=== PATIENT | female | born 1955 | race Caucasian/White ===

== ENCOUNTER 2017-11-01 08:21 | Outpatient (CLI) | payer BC | END 2017-11-01 08:22 | disposition home or self-care (01) | LOC: BICMAMMO 08:21 | PROVIDERS: ATTEND Internal Medicine | DX: Z12.31 Encounter for screening mammogram for malignant neoplasm of breast (principal); Z13.820 Encounter for screening for osteoporosis; Z85.3 Personal history of malignant neoplasm of breast; M85.88 Other specified disorders of bone density and structure, other site | CPT/HCPCS: 77063; 77067; 77080 ==

== ENCOUNTER 2018-09-15 14:31 | Outpatient (CLI) | payer BC ==
--- NOTE | 2018-09-15 18:27 | RAD ---
6 VIEWS CERVICAL SPINE: Date: 09/15/18 HISTORY: Cervical radiculopathy. COMPARISON: None. FINDINGS: AP, open-mouth, base of skull, bilateral oblique, and lateral views of cervical spine are submitted f or interpretation. Predental space is normal. Odontoid process is intact. Lateral masses of C1 and C2 articulate appropriately. In the AP projection, mild facet hypertrophy at multiple levels. No malalignment. Bilaterally, the neural foramina are patent. There is mild narrowing of the right neural foramina at C5-C6 and C6-C7. No evidence of high grade foraminal stenosis. On the lateral projection, moderate loss of disc space height at C5-C6 and C6-C7. Straightening of no rmal cervical lordosis. No fracture. IMPRESSION: Degenerative disc disease at C5-C6 and C6-C7. POS: [facility]
== END 2018-09-15 14:32 | disposition home or self-care (01) ==
LOC: BICRAD 14:31
PROVIDERS: ATTEND Chiropractor
DX: M50.122 Cervical disc disorder at C5-C6 level with radiculopathy (principal)
CPT/HCPCS: 72050

== ENCOUNTER 2018-11-04 08:47 | Outpatient (CLI) | payer BC ==
--- NOTE | 2018-11-04 11:06 | BD ---
DEXA BONE DENSITY STUDY: History: Post-menopausal. Lumbar Spine: BMD (g/cm2) L1 0.984 T-Score: -0.1 L2 1.083 T-Score: 0.4 L3 0.967 T-Score: -1.1 L4 0.882 T-Score: -1.6 L1-L4 0.979 T-Score: 0.6 Femoral Neck: 0.647 T-Score: -1.8 Total Femur: 0.795 T-Score: -1.2 Impression: 1. Osteopenia left femoral neck. Normal bone mineral density of the lumbar spine. 2. 10-year fracture risk of major osteoporotic fracture is 17% and hip fracture 1%. These fracture pr obabilities were calculated for an untreated patient. POS: [facility]
== END 2018-11-04 08:48 | disposition home or self-care (01) ==
LOC: BICMAMMO 08:47
PROVIDERS: ATTEND Internal Medicine
DX: Z08 Encounter for follow-up examination after completed treatment for malignant neoplasm (principal); M85.89 Other specified disorders of bone density and structure, multiple sites; Z85.3 Personal history of malignant neoplasm of breast; Z80.3 Family history of malignant neoplasm of breast
CPT/HCPCS: 77063; 77067; 77080

== ENCOUNTER 2018-12-12 09:00 | Outpatient (CLI) | payer BC ==
--- NOTE | 2018-12-12 11:03 | MRI ---
MRI CERVICAL SPINE: 12/12/2018 PROVIDED CLINICAL HISTORY: Cervical disk disorder with radiculopathy. FINDINGS: Cervical alignment appears normal, with the exception of trace anterolisthesis of C3 on C4. Vertebra l body heights are preserved. No focal concerning regional marrow signal abnormality is evident. Th e visualized posterior fossa, cervicomedullary junction, and cervical spinal cord demonstrate normal signal and morphology. At C2-C3, there is bilateral facet arthritis without significant central canal or foraminal narrowing apparent. At C3-C4, there is right-sided uncinate process hypertrophy and facet arthritis, producing moderate-s evere foraminal narrowing on the right. There is mild left foraminal narrowing due to uncinate proce ss hypertrophy. No significant central canal stenosis apparent. At C4-C5, there is disk space height loss and endplate degenerative change with a broad-based disk bu lge and bilateral uncinate process hypertrophy. Bilateral facet arthritis. There is mild to moderat e bilateral foraminal narrowing. There is effacement of the ventral subarachnoid space without cord contact or deformity. At C5-C6, there is disk space height loss and endplate degenerative change with a broad-based disk bu lge and bilateral uncinate process hypertrophy. There is mild bilateral foraminal narrowing. There is effacement of the ventral subarachnoid space without cord contact or deformity. At C6-C7, there is endplate degenerative change and a broad-based disk bulge with bilateral uncinate process hypertrophy. There is no significant foraminal narrowing apparent. There is effacement of t he ventral subarachnoid space without cord contact or deformity. At C7-T1, there is no significant central canal or foraminal narrowing apparent. IMPRESSION: Advanced multilevel cervical degenerative changes, producing areas of primarily foraminal stenosis, a s described above. POS: [facility]
== END 2018-12-12 09:01 | disposition home or self-care (01) ==
LOC: BICMRI 09:00
PROVIDERS: ATTEND Family Medicine
DX: M50.13 Cervical disc disorder with radiculopathy, cervicothoracic region (principal); M47.812 Spondylosis without myelopathy or radiculopathy, cervical region; M48.02 Spinal stenosis, cervical region
CPT/HCPCS: 72141

== ENCOUNTER 2019-11-09 14:10 | Outpatient (CLI) | payer BC ==
--- NOTE | 2019-11-09 14:50 | MMO ---
Bilateral MAMMO Bilat Diag [facility]. CLINICAL HISTORY: Patient is 63 years old and is seen for diagnostic exam. The patient has a history of lumpectomy procedure revealed invasive ductal right breast carcinoma in September,. The patient has a history of right Lumpectomy in September, - malignant and left Excisional Biopsy in 1975 - benign. VIEWS: The views performed were: bilateral craniocaudal with tomosynthesis; bilateral mediolateral oblique with tomosynthesis; and bilateral mediolateral with tomosynthesis. FILMS COMPARED: The present examination has been compared to prior imaging studies performed at [facility] on 10/12/2015, 10/11/2016, 11/01/2017 and 11/04/2018. This study has been interpreted with the assistance of computer-aided detection. MAMMOGRAM FINDINGS: There are scattered fibroglandular densities. There are stable post operative changes seen in the right breast. There are no suspicious masses, suspicious calcifications, or new areas of architectural distortion. IMPRESSION: THERE IS NO MAMMOGRAPHIC EVIDENCE OF MALIGNANCY. A ROUTINE FOLLOW-UP MAMMOGRAM IN 1 YEAR IS RECOMMENDED. THE RESULTS OF THIS EXAM WERE SENT TO THE PATIENT. ACR BI-RADS Category 2 - Benign finding MAMMOGRAPHY NOTE: 1. A negative mammogram report should not delay a biopsy if a dominant of clinically suspicious mass is present. 2. Approximately 10% to 15% of breast cancers are not detected by mammography. 3. Adenosis and dense breasts may obscure an underlying neoplasm. Reported by: YING MIX MD Electonically Signed: [id number]
--- NOTE | 2019-11-09 15:19 | BD ---
DEXA BONE DENSITY SCAN: DATE: 11/09/2019. COMPARISON: 11/04/2018. HISTORY: Postmenopausal female undergoing screening for osteoporosis. FINDINGS: Lumbar Spine: BMD (g/cm2) L1 0.976 T-Score: -0.1 Previous: -0.1 L2 1.118 T-Score: 0.8 Previous: 0.4 L3 1.013 T-Score: -0.6 Previous: -1.1 L4 0.905 T-Score: -1.4 Previous: -1.6 L1-L4 1.004 T-Score: -0.4 Previous: -0.6 Femoral Neck: 0.652 T-Score: -1.8 Previous: -1.8 Total Femur: 0.838 T-Score: -0.8 Previous: -1.2 FRAX-WHO fracture risk assessment tool reports a 10-year fracture risk in an untreated patient at 17% for a major osteoporotic fracture and 1% for hip fracture. IMPRESSION: Normal lumbar spine bone mineral density. Osteopenia is noted within the femoral neck, correlating wi th a moderately increased risk for fracture. Transcribed Date/Time: 11/09/2019 3:49 PM
== END 2019-11-09 14:11 | disposition home or self-care (01) ==
LOC: BICMAMMO 14:10
PROVIDERS: ATTEND Internal Medicine Hematology & Oncology
DX: Z13.820 Encounter for screening for osteoporosis (principal); C50.911 Malignant neoplasm of unspecified site of right female breast; N95.8 Other specified menopausal and perimenopausal disorders; M85.89 Other specified disorders of bone density and structure, multiple sites
CPT/HCPCS: 77066; 77080; G0279

== ENCOUNTER 2020-11-30 09:20 | Outpatient (CLI) | payer BC ==
--- NOTE | 2020-11-30 10:30 | MMO ---
Bilateral MAMMO Bilat Diag [facility]. CLINICAL HISTORY: Patient is 64 years old and is seen for diagnostic exam. The patient has no family history of breast cancer. The patient has a history of lumpectomy procedure revealed invasive ductal right breast carcinoma in September,. The patient has a history of right Lumpectomy in September, - malignant and left Excisional Biopsy in 1975 - benign. VIEWS: The views performed were: bilateral craniocaudal with tomosynthesis; bilateral mediolateral oblique with tomosynthesis; and bilateral mediolateral with tomosynthesis. FILMS COMPARED: The present examination has been compared to prior imaging studies performed at [facility] on 11/01/2017, 11/04/2018, 11/09/2019 and 11/30/2020. This study has been interpreted with the assistance of computer-aided detection. MAMMOGRAM FINDINGS: There are scattered fibroglandular densities. Finding 1: There is an asymmetry seen in the left breast at 12 o'clock. This is seen on the ML view only. No definite correlate is seen sonographically. Finding 2: There are stable post operative changes seen in the right breast. Finding 3: There is a stable focal asymmetry seen in the lower-inner region of the left breast. IMPRESSION: FINDING 1: ASYMMETRY IN THE LEFT BREAST AT 12 O'CLOCK IS PROBABLY BENIGN. FOLLOW-UP IN 6 MONTHS IS RECOMMENDED. THE RESULTS OF THIS EXAM WERE SENT TO THE PATIENT. ACR BI-RADS Category 3 - Probably benign finding - short interval follow-up suggested. [facility] will notify the patient of the need for additional imaging services. MAMMOGRAPHY NOTE: 1. A negative mammogram report should not delay a biopsy if a dominant of clinically suspicious mass is present. 2. Approximately 10% to 15% of breast cancers are not detected by mammography. 3. Adenosis and dense breasts may obscure an underlying neoplasm. Reported by: BETTY CAROLINA MD Electonically Signed: [id number]
--- NOTE | 2020-11-30 10:41 | ULT ---
EXAM: US Breast Limited Lt PROVIDED CLINICAL HISTORY: Mammographic asymmetry COMPARISON: Concurrently performed diagnostic mammogram FINDINGS: Limited sonographic interrogation was performed of the 12:00 position of the left breast in the regio n of mammographic concern. The static sonographic images demonstrate a questionable area of circumscribed altered echogenicity in this location, not reproduced at real-time imaging in the prese nce of interpreting radiologist. IMPRESSION: No definite sonographic correlate for mammographic asymmetry. Six-month follow-up diagnostic mammogra phy is recommended. BI-RADS 3 -- probably benign, 6-month follow-up
--- NOTE | 2020-11-30 12:00 | BD ---
DEXA BONE DENSITY STUDY: HISTORY: Postmenopausal. FINDINGS: Lumbar Spine: BMD (g/cm2) L1 0.983 T-Score: -0.1 L2 1.113 T-Score: +0.8 L3 0.969 T-Score: -1.0 L4 0.925 T-Score: -1.2 L1-L4 0.999 T-Score: -0.4 Femoral Neck: 0.651 T-Score: -1.8 Total Femur: 0.806 T-Score: -1.1 Impression: 1. Osteopenia of the left femoral neck. Normal bone mineral density of the lumbar spine. 2. Ten-year fracture of a major osteoporotic fracture is 17% and of a hip fracture 1%. These fractu re probabilities were calculated for an untreated patient. POS: [facility]
== END 2020-11-30 09:21 | disposition home or self-care (01) ==
LOC: BICMAMMO 09:20
PROVIDERS: ATTEND Internal Medicine Hematology & Oncology
DX: M85.89 Other specified disorders of bone density and structure, multiple sites (principal); C50.911 Malignant neoplasm of unspecified site of right female breast; T38.6X5A Adverse effect of antigonadotrophins, antiestrogens, antiandrogens, not elsewhere classified, initial encounter; N64.89 Other specified disorders of breast
CPT/HCPCS: 77066; 77080; G0279

== ENCOUNTER 2021-06-02 08:04 | Outpatient (CLI) | payer BC | END 2021-06-02 08:05 | disposition home or self-care (01) | LOC: BICMAMMO 08:04 | PROVIDERS: ATTEND Internal Medicine Hematology & Oncology | DX: R92.8 Other abnormal and inconclusive findings on diagnostic imaging of breast (principal); Z85.3 Personal history of malignant neoplasm of breast; N64.89 Other specified disorders of breast | CPT/HCPCS: G0279 ==

== ENCOUNTER 2021-12-25 13:05 | Outpatient (CLI) | payer BC | END 2021-12-25 13:06 | disposition home or self-care (01) | LOC: BICMAMMO 13:05 | PROVIDERS: ATTEND Internal Medicine Hematology & Oncology | DX: Z08 Encounter for follow-up examination after completed treatment for malignant neoplasm (principal); Z85.3 Personal history of malignant neoplasm of breast | CPT/HCPCS: 77066; G0279 ==

== ENCOUNTER 2023-01-04 12:42 | Outpatient (CLI) | payer MEDICARE, BC | END 2023-01-04 12:43 | disposition home or self-care (01) | LOC: BICMAMMO 12:42 | PROVIDERS: ATTEND Internal Medicine Hematology & Oncology | DX: Z12.31 Encounter for screening mammogram for malignant neoplasm of breast (principal); N64.89 Other specified disorders of breast; Z98.890 Other specified postprocedural states; Z91.89 Other specified personal risk factors, not elsewhere classified; Z80.3 Family history of malignant neoplasm of breast | CPT/HCPCS: 77063; 77067 ==

== ENCOUNTER 2023-10-03 09:56 | Outpatient (CLI) | payer MEDICARE, BC | END 2023-10-03 09:57 | disposition home or self-care (01) | LOC: BICULT 09:56 | DX: G57.81 Other specified mononeuropathies of right lower limb (principal) | CPT/HCPCS: 76999 ==